=== PATIENT | female | born 1995 | race Hispanic/Latino ===

== ENCOUNTER → 2020-01-11 | Outpatient (CLI) | payer OTHER ==
--- NOTE | 2020-01-11 12:41 | REP ---
FOCUSED LEFT BREAST SONOGRAPHY: HISTORY: 24-year-old with left breast lump times 2 month 7-o'clock position inferior to the areola. FINDINGS: Focused left breast scanning in the area of the palpable lump demonstrates a hypoechoic nodule measuring 2.2 x 1.2 x 2.2 cm at the site of the palpable lump. The long axis of the lesion is parallel to the skin. There is enhanced through transmission and well-defined margins. At 8-o'clock position in the left breast, there are two hypoechoic nodules. These measure 1.0 x 0.5 x 0.7 cm and 1.6 x 1.1 x 2.0 cm. These are located 2.4 and 3.7 cm from the nipple respectively, both at 8-o'clock position. These have somewhat lobulated borders. There are long axes are parallel to the skin as well. IMPRESSION: There are three hypoechoic solid nodules in the left breast inferomedial quadrant. The largest of these corresponds to the palpable abnormality at 7-o'clock position. These are compatible with, although not specific for, fibroadenoma. Ultrasound guided needle biopsy recommended. BIRADS category 4 suspicious focused left breast sonography. Electronically Signed by Shaun Clayton MD 01/11/2020 05:25 P
== END ==
LOC: M RAD 10:23
PROVIDERS: ATTEND Nurse Practitioner Primary Care
DX: N63.24 Unspecified lump in the left breast, lower inner quadrant (principal)

== ENCOUNTER → 2020-02-29 | Outpatient (CLI) | payer OTHER | LOC: M PLALAB 09:38 | PROVIDERS: ATTEND Surgery | DX: Z13.79 Encounter for other screening for genetic and chromosomal anomalies (principal); Z80.42 Family history of malignant neoplasm of prostate ==

== ENCOUNTER → 2020-03-09 | Outpatient (CLI) | payer OTHER ==
[~2020-03-09] MED LIST: ORTH1TAB8 PO
[2020-03-09 09:36] VITALS: BP 116/76
--- NOTE | 2020-03-09 10:24 | REP ---
RIGHT BREAST SONOGRAPHY: HISTORY: Palpable mass in the right breast 8-o'clock, 3 cm from the nipple. FINDINGS: Focused right breast sonography is performed in the 8-o'clock position at the area of the palpable lump, 3 cm from the nipple, there is an ovoid hypoechoic solid nodule 1.3 x 1.2 x 0.5 cm in diameter. Its long axis is parallel to the skin. Its back wall is well defined. No acoustic shadowing is seen. There is also compatible with although not specific for fibroadenoma.
--- NOTE | 2020-03-09 10:25 | REP ---
LEFT BREAST SONOGRAPHY: Sonographic guidance. HISTORY: Ultrasound-guided needle biopsy procedure. Ultrasound guidance is provided to Dr. Garner who performed ultrasound-guided left breast needle biopsy procedure. Two lesions are sampled.
--- NOTE | 2020-03-09 14:59 | ROOPDOC ---
[facility] Report Of Operation Report of Operation DATE OF PROCEDURE: 03/09/20 PREPROCEDURE DIAGNOSES: Left breast masses POSTPROCEDURE DIAGNOSES: Left breast masses PROCEDURE: Left breast ultrasound-guided biopsy with clip placement SURGEON: Damien Casanova HOUSING CASE MANAGER: ANESTHESIA: Local ESTIMATED BLOOD LOSS: Approximately 1 mL. COMPLICATIONS: None REMARKS: Clip was visible on ultrasound. No postop mammogram was done to the patient's young age and no initial mammogram. DESCRIPTION OF PROCEDURE: Lidocaine 1% LOT [id number] Expiration 04/2023 Sodium Bicarbonate 8.4% LOT 05-034-EV Expiration 04/2021 Hydromark clip LOT [id number] Expiration 10/2022 Bx device: BARD [id number] x10 cm LOT HUEN 2082 Expiration 12/2022 Informed consent was obtained. The most common risk and possible complications including bleeding, hematoma, bruising, infection, injury to surrounding structures were explained to the patient and she expressed understanding. Patient was taken to the procedure room and placed on the bed in the supine position with the left upper extremity placed along the body. Appropriate time out was done stating patients name, date of , and the procedure to be performed. The left breast was prepped and draped in the usual fashion. The ultrasound was used to confirm the location of the lesion in the left breast at 8:00 in the periareolar region. There were 3 masses noted all with similar appearance. The medial larger mass with abutting smaller mass were chosen for biopsy as the third mass was directly under the nipple. Plain Lidocaine 1% and 8.4% sodium bicarbonate 10:1 mix was used to numb the skin, the biopsy site and tissues along the anticipated biopsy tract. Small skin incision was made with blade number 11. BARD Marquee 14G cannula with introducer ([id number]) was inserted through the incision and advanced under the ultrasound guidance to position immediately adjacent to the lesion. Next, the introducer was removed and BARD Marquee 14G biopsy device was places in the cannula. Pre-biopsy imaging, and post-biopsy imaging were captured. Five good core biopsies were taken at various levels of the lesion. Specimen was placed in formaldehyde, labeled with appropriate biopsy site and patients name, and sent to pathology for evaluation. Next, the biopsy device was withdrawn and a clip introducer was inserted into the biopsy site via the cannula. The Hydromark clip was deployed under direct vision. Post-clip placement image was captured. Manual pressure over the biopsy cavity and tract was held after the clip introducer was withdrawn. No bleeding was noted upon removal of the pressure. Post-biopsy mammogram was not done because patient did not have mammogram done prior to the biopsy and its results would not alter treatment plan. Postprocedural dressing was placed. Patient tolerated procedure well. Discharge instructions were discussed with the patient and she expressed understanding. DAMIEN CASANOVA DO Mar 09, 2020 14:59
== END ==
LOC: M WHCPRO 08:20
PROVIDERS: ATTEND Surgery
DX: N60.22 Fibroadenosis of left breast (principal)

== ENCOUNTER → 2020-03-25 | Outpatient (CLI) | payer OTHER ==
[2020-03-25 14:24] VITALS: BP 104/70
--- NOTE | 2020-03-26 08:21 | REP ---
ULTRASOUND GUIDANCE FOR RIGHT BREAST BIOPSY: Ultrasound guidance is provided for Dr. Garner for a right breast biopsy. A focal nodule is again seen at the 8 -o'clock position of the right breast approximately 3 cm from the nipple. The approximate diameter is 1 cm. Biopsy is performed by Dr. Garner.
--- NOTE | 2020-03-26 23:58 | ROOPDOC ---
[facility] Report Of Operation Report of Operation DATE OF PROCEDURE: 03/25/20 PREPROCEDURE DIAGNOSES: Right breast mass. POSTPROCEDURE DIAGNOSES: Right breast mass. PROCEDURE: Ultrasound-guided biopsy of the right paraspinous with clip placement. SURGEON: Damien Casanova HEAT TREAT SUPERVISOR: ANESTHESIA: Local anesthetic was used. ESTIMATED BLOOD LOSS: Approximately 1 mL. COMPLICATIONS: None. REMARKS: Clip was visible in the appropriate the appropriate location on the ultrasound of the right breast. No post biopsy mammography was obtained due to patient's young age. DESCRIPTION OF PROCEDURE: Lidocaine 1% LOT [facility] [id number] Expiration 01/2021 Sodium Bicarbonate 8.4% LOT 06-081-EV Expiration 05/2021 Hydromark clip LOT [id number] SHAPE 4 Bx device: BARD [id number] x10 cm LOT EN 3 Expiration 12/2022 Informed consent was obtained. The most common risk and possible complications including bleeding, hematoma, bruising, infection, injury to surrounding struc tures were explained to the patient and she expressed understanding. Patient was placed on the bed in the supine position with the right upper extremity placed above the head. Appropriate time out was done stating patients name, date of , and the procedure to be performed. The right breast was prepped and draped in the usual fashion. The ultrasound was used to confirm the location of the lesion in the right breast at 8:00 3 centimeters from the nipple. Plain Lidocaine 1% and 8.4% sodium bicarbonate 10:1 mix was used to numb the skin, the biopsy site and tissues along the anticipated biopsy tract. Small skin incision was made with blade number 11. BARD Marquee 14G cannula with introducer ([id number]) was inserted through the incision and advanced under the ultrasound guidance to position immediately adjacent to the lesion. Next, the introducer was removed and BARD Marquee 14G biopsy device was places in the cannula. Pre-biopsy imaging, and post-biopsy imaging were captured. Five good core biopsies were taken at various levels of the lesion. Specimen was placed in formaldehyde, labeled with appropriate biopsy site and patients name, and sent to pathology for evaluation. Next, the biopsy device was withdrawn and a clip introducer was inserted into the biopsy site via the cannula. The Hydromark clip was deployed under direct vision. Post-clip placement image was captured. Manual pressure over the biopsy cavity and tract was held after the clip introducer was withdrawn. No bleeding was noted upon removal of the pressure. No post-biopsy mammogram of the right breast was obtained due to patients young age and since the clip was visible on US. Postprocedural dressing was placed. Patient tolerated procedure well. Discharge instructions were discussed with the patient and she expressed understanding. DAMIEN CASANOVA DO Mar 26, 2020 23:58
== END ==
LOC: M WHCPRO 13:09
PROVIDERS: ATTEND Surgery
DX: N60.21 Fibroadenosis of right breast (principal)

== ENCOUNTER → 2020-04-09 | Outpatient (CLI) | payer OTHER ==
[~2020-04-09] MED LIST changes: +ULTR50TA8 PO
== END ==
LOC: M LABSMTC 07:55
PROVIDERS: ATTEND Anesthesiology
DX: Z01.818 Encounter for other preprocedural examination (principal); Z11.59 Encounter for screening for other viral diseases

== ENCOUNTER 2020-04-12 09:59 | Day surgery (SDC) | payer OTHER ==
[~2020-04-12] VITALS: Ht 152.4 cm; Wt 52.6 kg
[~2020-04-12 09:59] MED LIST changes: +HEPARIN SOD (PORCINE) 5000UNITS/ML VIAL (J1644 PER 1000UNITS) SQ ONE; +LR 1,000 ML IV ONE; -ULTR50TA8 PO; +ceFAZolin SOD 2 GM in IV 1 EA IV ONE
[2020-04-12] MEDS ORDERED: fentaNYL 250 MCG/5 ML INJECTION (J3010) As Ordered ONE (10:09)
[2020-04-12] MEDS ORDERED: MIDAZOLAM INJ 2MG/2ML VIAL (J2250 PER 1MG) As Ordered ONE (10:09)
[2020-04-12] MEDS ORDERED: dexameTHASONE 4 MG/ML 1ML VIAL (J1100 PER 1MG) As Ordered ONE (10:18)
[2020-04-12] MEDS ORDERED: propofoL 200 MG/20 ML VIAL As Ordered ONE (10:18)
[2020-04-12] MEDS ORDERED: ONDANSETRON 4MG/2ML VIAL As Ordered ONE (10:18)
[2020-04-12] MEDS ORDERED: LIDOCAINE 2% 100MG/5ML SDV (FOR ANES.) As Ordered ONE (10:18)
[2020-04-12] MEDS ORDERED: BUPIVACAINE HCL 0.25% 30ML VIAL As Ordered ONE (11:04)
[2020-04-12] MEDS ORDERED: LIDOCAINE 1% SDV 30ML VIAL As Ordered ONE (11:04)
[2020-04-12] MEDS ORDERED: ACETAMINOPHEN 1000MG 100ML IV BTL (OFIRMEV) (J0131 PER 10MG) As Ordered ONE (12:49)
[2020-04-12] MEDS ORDERED: ULTR50TA8 PO (13:59)
[2020-04-12] MEDS ORDERED: ONDANSETRON 4MG/2ML VIAL IV PRN (14:15)
[2020-04-12] MEDS ORDERED: PERCOCET 5MG/325MG TAB PO PRN (14:15)
[2020-04-12] MEDS ORDERED: LR 1,000 ML IV SCH (14:15)
[2020-04-12] MEDS ORDERED: fentaNYL 100 MCG/2 ML INJECTION (J3010) IV PRN (14:15)
[2020-04-12 16:35] VITALS: BP 117/59
--- NOTE | 2020-04-12 21:09 | ROOPDOC ---
[facility] Report Of Operation Report of Operation DATE OF PROCEDURE: 04/12/20 PREPROCEDURE DIAGNOSES: Bilateral breast masses. POSTPROCEDURE DIAGNOSES: Bilateral breast masses. PROCEDURE: Bilateral excisional biopsies. SURGEON: Damien Casanova REMNANTS CUTTER: Carmelita Lopez ANESTHESIA: Gen. anesthetic was used. ESTIMATED BLOOD LOSS: Approximately 5 mL. COMPLICATIONS: None. REMARKS: 3 left breast masses were removed and one right breast mass was removed. All masses have a lobulated appearance. Both clips were identified. DESCRIPTION OF PROCEDURE: INDICATIONS: Ms. Baltazar is a 25-year-old woman who was found to have a suspicious bilateral breast masses, one in right breast and 3 in the left breast. Biopsy of one right breast mass was done and come back as fibroadenoma. 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 Excisional biopsy of the left breast masses was offered to the patient due to concern of fibroadenoma. Patient wished both right and left breast masses to be removed at the same surgery. She is healthy female without underlying medical conditions hence she did not need medical clearance prior to surgery. Risks and possible complications of surgical procedure including bleeding, infection and injury to surrounding structures were explained to the patient and she wished to proceed. Consent was signed. My initials were placed on the operative site. Subcutaneous injection of 5000 units of heparin was done in Preop. DETAILS: Patient was taken to the operating room and placed on the operating room table. A sign in was called stating patients name, date of and the procedure to be done. Preoperative antibiotics were infused. Smooth induction of general anesthesia was done. Patients hands were extended on arm rests. Care was taken not to over extend the arms. Next, patients bilateral breasts and axilla were prepped and draped in the usual fashion. Care was taken not to displace the wire. Appropriate time out was done again prior second part of the procedure. Patients name, date of , and the procedure to be done were confirmed. Procedure was started with left excisional biopsy. A local anesthetic using 1% lidocaine and 0.25 % Marcaine 50/50 mix was injected at the site of planned left periareolar incision. The incision was made with the scalpel. Subcutaneous skin flaps were raised. Palpation and intraoperative ultrasound were used to localize all three left breast masses. The first mass was relatively superficial. The other two masses were located deeper and were excised as a one specimen. A clip was identified at the site of deeper larger mass which is consistent with the fact that this mass was biopsied previously. All three masses were places in the formaldehyde un-oriented, labeled with patients name and left excisional biopsy and then sent to pathology. Next, the wound was irrigated thoroughly. Doctor Paleys assistance was critical in achieving adequate hemostasis and to progress the case in the expeditious fashion. Additional local anesthetic was injected into surrounding tissues. De ad space was approximated with 3-0 Vicryl. The dermis was closed with 3-0 Monocryl and skin was closed with 4-0 Monocryl. Surgical glue was placed over the incision at the end of the case Next, our attention was turned toward the right breast. A local anesthetic using 1% lidocaine and 0.25 % Marcaine 50/50 mix was injected at the site of planned right periareolar incision. The incision was made with the scalpel. Subcutaneous skin flaps were raises. Palpation and intraoperative ultrasound were used to localize the right breast mass which was located deep in the breast at 8:00 position. Mass was excised as a whole. A Hydromark clip was identified in the mass which is consistent with the fact that this mass was previously biopsied. The right breast mass was places in the formaldehyde un-oriented, labeled with patients name and right excisional biopsy and then sent to pathology. Next, the wound was irrigated thoroughly. Again, doctor Paleys assistance was critical in achieving adequate hemostasis and to progress the case in the expeditious fashion. Additional local anesthetic was injected into surrounding tissues. space was approximated with 3-0 Vicryl. The dermis was closed with 3-0 Monocryl and skin was closed with 4-0 Monocryl. Surgical glue was placed over the incision at the end of the case Patient emerged from the anesthesia without any problems. Fluffs were placed o clifford the operative sites and patients chest was wrapped snuggly in the BRENT wrap. Sponge and instrument counts were done and were correct. Patient tolerated procedure well and was taken to recovery unit in stable condition. DAMIEN CASANOVA DO April 12, 2020 20:50
== END 2020-04-12 16:50 | disposition home or self-care (01) ==
LOC: M SDC 09:59
PROVIDERS: ATTEND Surgery
DX: D24.1 Benign neoplasm of right breast (principal); D24.2 Benign neoplasm of left breast; Z79.3 Long term (current) use of hormonal contraceptives
CPT/HCPCS: 19125; 19126; 36415; 81025; 86850; 86900; 86901; 88305; J0131; J0690; J1100; J1644; J2250; J2405; J3010